=== PATIENT | female | born 1990 | race Hispanic/Latino ===

== ENCOUNTER 2016-12-22 12:28 | Emergency (ER) | payer SELFPAY ==
[~2016-12-22] VITALS: Ht 157.5 cm; Wt 66.0 kg
[~2016-12-22 12:28] MED LIST: NAPROSYN500 MG OR
[2016-12-22] MEDS ORDERED: FLEXERIL PO (13:23)
[2016-12-22] MEDS ORDERED: MOTRIN800 MG PO (13:23)
[2016-12-22] MEDS ORDERED: TRAMADOL HYDROC50 MG PO (13:23)
[2016-12-22 14:45] VITALS: BP 124/82
== END 2016-12-22 14:48 | disposition home or self-care (01) | DRG 552 ==
LOC: ED 12:28
DX: M54.31 Sciatica, right side (principal)

== ENCOUNTER 2019-02-06 08:31 | Emergency (ER) | payer SELFPAY ==
[~2019-02-06] VITALS: Ht 157.5 cm; Wt 70.0 kg
[~2019-02-06 08:31] MED LIST changes: +FLEXERIL PO; +MOTRIN800 MG PO; +TRAMADOL HYDROC50 MG PO
[2019-02-06 09:45] LABS: HEMATOCRIT 35.5 % (37.0-47.0); HEMOGLOBIN 11.5 g/dl (12.0-16.0); IMMATURE GRANULOCYTES 0.3 % (0.0-5.0); MEAN CELL VOLUME 80.9 fL CALC (80.0-100.0); MEAN CORPUSCULAR HGB 26.2 pG CALC (26.0-32.0); MEAN CORPUSCULAR HGB CONC 32.4 g/L CALC (32.0-36.0); NEUT# 3.82 thou/uL (2.00-7.15); RED BLOOD COUNT 4.39 mill/uL (4.20-5.60)
[2019-02-06 09:48] LABS: URINE BILIRUBIN - DIPSTICK NEGATIVE (NEGATIVE); URINE BLOOD DIPSTICK NEGATIVE (NEGATIVE); URINE COLOR YELLOW; URINE GLUCOSE - DIPSTICK NEGATIVE (NEGATIVE); URINE KETONE NEGATIVE (NEGATIVE); URINE LEUK ESTERASE NEGATIVE (NEGATIVE); URINE NITRITE - DIPSTICK NEGATIVE (Negative); URINE PH 7.5 (4.5-8.0); URINE PROTEIN - DIPSTICK NEGATIVE (NEG-TRACE); URINE SPECIFIC GRAVITY 1.015; URINE UROBILINOGEN - DIPSTICK 0.2 E.U./dL (0.2)
[2019-02-06 09:51] LABS: ALBUMIN 4.5 g/dL (3.2-5.0); ALKALINE PHOSPHATASE 70 u/l (38-126); AMYLASE 58 u/l (30-110); ANION GAP 13 (6-22 (CALC)); BUN 15 mg/dL (7-17); BUN/CREATININE RATIO 21 (12-20 (CALC)); CARBON DIOXIDE 23 mmol/l (22-30); CHLORIDE 108 mmol/l (95-108); CREATININE 0.7 mg/dL (0.5-1.0); GFR > 60 ML/MIN (>=60 (CALC)); GFR FOR AFR.AMER. > 60 ML/MIN (>=60 (CALC)); LIPASE 179 u/l (23-300); POTASSIUM 4.5 mmol/l (3.5-5.1); SODIUM 140 mmol/l (137-146)
[2019-02-06 09:52] LABS: BILIRUBIN, TOTAL 0.3 mg/dL (0.0-1.4); SGOT/AST 112 u/l (14-36)
[2019-02-06] MEDS ORDERED: OMEPRAZOLE DR40 MG PO (10:30)
[2019-02-06] MEDS ORDERED: MULTI VIT PO (10:31)
[2019-02-06] MEDS ORDERED: OMEGA 3340 MG PO (10:32)
[2019-02-06] MEDS ORDERED: ZOFRAN4 M1 PO (10:49)
[2019-02-06 11:08] VITALS: BP 111/68
== END 2019-02-06 11:08 | disposition home or self-care (01) | DRG 392 ==
LOC: ED 08:31
DX: R10.13 Epigastric pain (principal); R11.0 Nausea